=== PATIENT | female | born 1945 | race Two or more races ===

== ENCOUNTER 2023-05-16 10:37 | Outpatient (CLI) | payer MEDICARE, OTHER ==
[2023-05-16] MEDS ORDERED: E-Z-HD 98% W/W 340GM BOT (x-ray ONLY) ONE (11:00)
[2023-05-16] MEDS ORDERED: Barium Sulfate 96% 176 GM BOT (xray ONLY) ONE (11:00)
== END 2023-05-16 10:38 | disposition home or self-care (01) ==
LOC: RAD 10:37
PROVIDERS: ATTEND Internal Medicine Gastroenterology
DX: K44.9 Diaphragmatic hernia without obstruction or gangrene (principal); K22.70 Barrett's esophagus without dysplasia; R13.19 Other dysphagia
CPT/HCPCS: 74246